=== PATIENT | female | born 1995 | race Caucasian/White ===

== ENCOUNTER 2023-05-16 19:25 | Emergency (ER) | payer SELFPAY ==
[~2023-05-16] VITALS: Ht 167.6 cm; Wt 59.0 kg
[~2023-05-16 19:25] MED LIST: CLIN300C12 PO
[2023-05-16] MEDS ORDERED: LIDOCAINE 1%-EPI 1:100,000 20 ML VIAL ONE (20:04)
[2023-05-16] MEDS: LIDOCAINE 2%-EPI 1:100,000 20 ML VIAL IJ ONE (20:11)
[2023-05-16] MEDS: BACITRACIN ZINC OINT 15 GM TUBE TOP STA (20:43)
[2023-05-16] MEDS ORDERED: AMOX-427 PO (20:55)
[2023-05-16] MEDS: AMOXICILLIN-CLAVUL 500-125MG TABLET PO ONE (21:00)
[2023-05-16] MEDS ORDERED: AMOXICILLIN-CLAVUL 500-125MG TABLET ONE (21:37)
[2023-05-16] MEDS ORDERED: NEOMY/BACITRA/POLYMYXIN B OINT UD PACKET TP ONE (21:37)
[2023-05-16 22:30] VITALS: BP 119/69; TEMP 98.4; O2SAT 98
== END 2023-05-16 22:31 | disposition home or self-care (01) ==
LOC: ER 19:32
DX: L03.011 Cellulitis of right finger (principal); Z79.899 Other long term (current) drug therapy; Z60.2 Problems related to living alone; Z88.1 Allergy status to other antibiotic agents
CPT/HCPCS: 99283; 26010; J3490; A4606; A4663